=== PATIENT | female | born 1990 | race African-American/Black ===

== ENCOUNTER 2016-09-10 22:35 | Emergency (ER) | payer BC, OTHER ==
[~2016-09-10 22:35] MED LIST: CIPR250T2 PO; DICL.1%O LEFT EYE; HYDR25 PO; PRED20 PO; TOBRA.3%O OS
[2016-09-10 22:42] VITALS: BP 114/70; PULSE 126; RESP 18; TEMP 103.1; O2SAT 99
[2016-09-10] MEDS ORDERED: SODIUM CHLOR 0.9% 1000 ML INJ 1,000 ML IV SCH (23:26)
[2016-09-10] MEDS ORDERED: SODIUM CHLORIDE 0.9% FLUSH 5 ML FLUSH IVF PRN (23:30)
[2016-09-10] MEDS ORDERED: KETOROLAC TROMETHAMINE 30 MG/ML (IVP) VIAL IVP ONE (23:30)
[2016-09-11 00:04] VITALS: BP 103/57; PULSE 99; RESP 18; O2SAT 97
--- NOTE | 2016-09-11 00:05 | PD ---
HPI Chief Complaint: Cold / Flu Symptoms Time Seen by Provider: 23:23 Travel History International Travel<30 days: No Contact w/Intl Traveler<30days: No Traveled to known affect area: No History of Present Illness HPI Healthy 26-year-old female here with complaint of flulike symptoms. Patient has been ill for the last week with cough, runny nose, body aches. Subjective fevers and chills. She checked her temperature this evening and it was elevated at 103 prompting her ER visit. Multiple sick contacts ill with similar symptoms. PFSH Past Medical History Anemia: Yes ?: Unknown Social History Alcohol Use: No Tobacco Use: No Substance Use: No Allergies-Medications (Allergen,Severity, Reaction): Coded Allergies: No Known Allergies (Unverified , 09/10/16) Reported Meds & Prescriptions Reported Meds & Active Scripts Active Atarax 25 Mg Tab (Hydroxyzine Hcl) 25 Mg Tab 25-50 Mg PO Q6 Deltasone (Prednisone) 20 Mg Tab 20 Mg PO TID Ciprofloxacin Hcl (Ciprofloxacin HCl) 250 Mg Tab 250 Mg PO BID 3 Days Tobrex Opth Soln (Tobramycin Sulfate) 0.3 % Soln 1 Drop OS Q4 7 Days Voltaren (Diclofenac Sodium) 2.5 Ml Soln 1 Drop LEFT EYE TID Review of Systems Except as stated in HPI: all other systems reviewed are Neg Physical Exam Narrative GENERAL: Well-appearing female in no acute distress SKIN: Warm and dry. HEAD: Normocephalic. EYES: No scleral icterus. No injection or drainage. ENT: Nasal mucosal injection, clear rhinorrhea. TMs clear bilaterally. Posterior pharynx clear without tonsillar swelling, exudate or palatal petechiae Mucous membranes pink and moist. NECK: Supple CARDIOVASCULAR: Tachycardic with heart rate in the 120s, regular rhythm. No murmur appreciated. RESPIRATORY: No accessory muscle use. Clear to auscultation. Breath sounds equal bilaterally. GASTROINTESTINAL: Abdomen soft, non-tender, nondistended. MUSCULOSKELETAL: Normal gait NEUROLOGICAL: Awake and alert. Normal speech. PSYCHIATRIC: Appropriate mood and affect; insight and judgment normal. Data Data Last Documented VS Vital Signs Date Time Temp Pulse Resp B/P Pulse Ox O2 Delivery O2 Flow Rate FiO2 09/11/16 00:06 100.0 09/11/16 00:04 99 18 103/57 97 Room Air Orders Urinalysis - C+S If Indicated (09/10/16 23:26) Iv Access Insert/Monitor (09/10/16 23:26) Ecg Monitoring (09/10/16 23:26) Oximetry (09/10/16 23:26) Sodium Chlor 0.9% 1000 Ml Inj (Ns 1000 M (09/10/16 23:26) Sodium Chloride 0.9% Flush (Ns Flush) (09/10/16 23:30) Ketorolac Inj (Toradol Inj) (09/10/16 23:30) Influenzae A/B Antigen (09/10/16 23:26) Labs Laboratory Tests Test 09/10/16 23:30 Urine Color YELLOW Urine Turbidity HAZY Urine pH 7.0 Urine Specific [place] 1.028 Urine Protein TRACE mg/dL Urine Glucose (UA) NEG mg/dL Urine Ketones NEG mg/dL Urine Occult Blood NEG Urine Nitrite NEG Urine Bilirubin NEG Urine Urobilinogen 8.0 MG/DL Urine Leukocyte Esterase NEG Urine RBC 1 /hpf Urine WBC 2 /hpf Urine Squamous Epithelial 5 /hpf Cells Urine Mucus FEW /lpf Microscopic Urinalysis Comment CULT NOT INDICATED MDM Medical Decision Making Medical Screen Exam Complete: Yes Emergency Medical Condition: Yes Medical Record Reviewed: Yes Differential Diagnosis 26-year-old female with history of one week of flulike symptoms. Differential includes viral syndrome, influenza, UTI. Narrative Course Patient placed on monitor, IV established, given 1 L normal saline bolus, 30 mg Toradol. Patient is well-appearing and I do not think she warrants blood work at this time. Influenza and urinalysis negative. Patient felt improved after the above therapy and her vital signs normalized and she'll be discharged home with reassurance. Diagnosis Primary Impression: Viral syndrome Additional Impression: Fever Qualified Code: R50.9 - Fever, unspecified fever cause Referrals: Primary Care Physician as needed Additional Instructions: Tylenol, ibuprofen as needed for fever, body aches. Med/Other Pt SpecificInfo: No Change to Meds Disposition: 01 DISCHARGE HOME Condition: Stable Yolanda Boland MD Sep 11, 2016 00:05
[2016-09-11 00:06] VITALS: TEMP 100
[2016-09-11 00:09] LABS: BLOOD, URINE NEG (NEG); COMMENT (UR) CULT NOT INDICATED; CULTURE IF INDICATED CULT NOT INDICATED; GLUCOSE,URINE NEG (NEG); KETONE, URINE NEG (NEG); MUCUS URINE FEW /lpf (OCC); NITRITE,URINE NEG (NEG); SQUAMOUS EPITHELIAL CELL URINE 5 /hpf (0-5); URINE COLOR YELLOW (YELLW/STRAW)
== END 2016-09-11 01:02 | disposition home or self-care (01) ==
LOC: NEPE 22:35
DX: B34.9 Viral infection, unspecified (principal)
CPT/HCPCS: 81001; 87804; 96361; 96374; 99283; J1885; J7030